=== PATIENT | female | born 1970 | race American Indian/Alaskan Native ===

== ENCOUNTER 2021-03-09 16:59 | Emergency (ER) | payer MEDICAID ==
[2021-03-09 17:13] VITALS: BP 155/95
[2021-03-09] MEDS ORDERED: ALBUTEROL 2.5 MG/3 ML NEBU IH ONE (17:26)
[2021-03-09] MEDS ORDERED: IPRATROPIUM 0.02% NEBU 2.5 ML IH ONE (17:26)
--- NOTE | 2021-03-09 17:59 | XRay Report ---
XR chest 1V ap INDICATION / CLINICAL INFORMATION: DYSPNEA, ASTHMA COMPARISON: None available. FINDINGS: SUPPORT DEVICES: None. HEART / MEDIASTINUM: No significant abnormality. LUNGS / PLEURA: Lungs are clear. Costophrenic sulci are sharp. No pneumothorax. ADDITIONAL FINDINGS: No significant additional findings. IMPRESSION: 1. No acute findings. Signer Name: Luis Alberto Fitzgerald MD Signed: 03/09/2021 5:54 PM Workstation Name: [id number]
[2021-03-09 18:36] LABS: Basophils # (Auto) 0.1 K/mm3 (0.0-0.1); Basophils % (Auto) 1.1 % (0.0-1.8); Eosinophils # (Auto) 0.2 K/mm3 (0.0-0.4); Eosinophils % (Auto) 3.2 % (0.0-4.3); Lymphocytes # (Auto) 1.3 K/mm3 (1.2-5.4); Lymphocytes % (Auto) 19.9 % (13.4-35.0); Mean Corpuscular HGB Conc 28 % (30-34); Monocytes # (Auto) 0.7 K/mm3 (0.0-0.8); Monocytes % (Auto) 11.4 % (0.0-7.3); Platelet Count 261 K/mm3 (140-440); Red Blood Count 4.31 M/mm3 (3.65-5.03); Red Cell Distribution Width 19.9 % (13.2-15.2)
[2021-03-09 18:37] LABS: Hematocrit 26.4 % (30.3-42.9); Hemoglobin 7.5 gm/dl (10.1-14.3); Mean Corpuscular Volume 61 fl (79-97)
[2021-03-09 18:43] LABS: Alanine Aminotransferase 9 units/L (7-56); BUN/Creatinine Ratio 14; Blood Urea Nitrogen 11 mg/dL (7-17); Calcium 8.5 mg/dL (8.4-10.2); Hemolysis Index 2
[2021-03-09] MEDS ORDERED: MAGNESIUM SULFATE 2 GM/50 ML BAG IV ONE ×2 (18:43→20:02)
[2021-03-09] MEDS ORDERED: SODIUM CHLORIDE 0.9% 1000 ML 1,000 ML IV ONE (18:43)
--- NOTE | 2021-03-09 19:48 | Emergency Department Report ---
ED Shortness of Breath HPI - General Chief Complaint: Dyspnea/Respdistress Stated Complaint: ASTHMA Source: patient Mode of arrival: Ambulatory Limitations: No Limitations - History of Present Illness Initial Comments: Patient is a 49-year-old -[place] female with a history of asthma, migraine headaches, iron deficiency anemia and tobacco abuse who presents to the ED with complaint of acute onset persistent shortness of breath, chest tightness, wheezing, persistent dry cough for the last 5 days despite using her albuterol inhaler at home. Patient states that her symptoms got worse the last 24 hours. Patient also states that she ran out of her albuterol nebulizers at home. Patient denies nausea, vomiting, dizziness, syncope, fever, chills, chest pain, nasal and sinus congestion, sore throat, abdominal pain, diarrhea, headache, change in vision, back pain or palpitations. MD Complaint: shortness of breath, cough, "asthma attack" -: Sudden, days(s) (5) Severity: moderate Pain Scale: 5 Quality: sharp Consistency: intermittent Improves With: nothing Worsens With: nothing Known History Of: asthma Context: allergen exposure Associated Symptoms: denies other symptoms, cough Treatments Prior to Arrival: bronchodilator - Related Data Home Oxygen Therapy: No Previous Rx's Medication Instructions Recorded Last Taken Type ALBUTEROL NEB's [Proventil 0.083% 3 ml IH Q6H PRN #75 ml 03/09/21 Unknown Rx NEBS] Albuterol Sulfate [Proventil Hfa] 1 - 2 puff IH Q6H PRN #1 hfa.aer.ad 03/09/21 Unknown Rx Azithromycin [Zithromax Z-FRANCA] 250 mg PO DAILY #6 tablet 03/09/21 Unknown Rx Benzonatate [Tessalon Perles] 100 mg PO Q8HR #30 capsule 03/09/21 Unknown Rx Ibuprofen [Motrin] 600 mg PO Q8H PRN #30 tablet 03/09/21 Unknown Rx Montelukast [Singulair] 10 mg PO QPM #30 tablet 03/09/21 Unknown Rx methylPREDNISolone [Medrol 4MG 4 mg PO DAILY #21 tab.ds.pk 03/09/21 Unknown Rx DOSEPAK (21 tabs)] Allergies Allergy/AdvReac Type Severity Reaction Status Date / Time sulfamethoxazole Allergy Hives Verified 03/09/21 17:11 [From Bactrim] trimethoprim [From Bactrim] Allergy Hives Verified 03/09/21 17:11 ED Review of Systems ROS: Stated complaint: ASTHMA Other details as noted in HPI Constitutional: malaise. denies: chills, fever Eyes: denies: eye pain, eye discharge, vision change ENT: denies: ear pain, throat pain Respiratory: cough, shortness of breath, wheezing Cardiovascular: chest pain (chest tightness). denies: palpitations Endocrine: no symptoms reported Gastrointestinal: denies: abdominal pain, nausea, vomiting, diarrhea Genitourinary: denies: urgency, dysuria, discharge Musculoskeletal: denies: back pain, joint swelling, arthralgia Skin: denies: rash, lesions Neurological: denies: headache, weakness, paresthesias Psychiatric: denies: anxiety, depression Hematological/Lymphatic: denies: easy bleeding, easy bruising ED Past Medical Hx - Past Medical History Previous Medical History?: Yes Hx Headaches / Migraines: Yes Hx Asthma: Yes Additional medical history: anemia - Surgical History Past Surgical History?: Yes Additional Surgical History: , - Medications Home Medications: Home Medications Medication Instructions Recorded Confirmed Last Taken Type ALBUTEROL NEB's [Proventil 0.083% 3 ml IH Q6H PRN #75 ml 03/09/21 Unknown Rx NEBS] Albuterol Sulfate [Proventil Hfa] 1 - 2 puff IH Q6H PRN #1 hfa.aer.ad 03/09/21 Unknown Rx Azithromycin [Zithromax Z-FRANCA] 250 mg PO DAILY #6 tablet 03/09/21 Unknown Rx Benzonatate [Tessalon Perles] 100 mg PO Q8HR #30 capsule 03/09/21 Unknown Rx Ibuprofen [Motrin] 600 mg PO Q8H PRN #30 tablet 03/09/21 Unknown Rx Montelukast [Singulair] 10 mg PO QPM #30 tablet 03/09/21 Unknown Rx methylPREDNISolone [Medrol 4MG 4 mg PO DAILY #21 tab.ds.pk 03/09/21 Unknown Rx DOSEPAK (21 tabs)] ED Physical Exam - General Limitations: No Limitations General appearance: alert, in no apparent distress - Head Head exam: Present: atraumatic, normocephalic, normal inspection - Eye Eye exam: Present: normal appearance, PERRL, EOMI - ENT ENT exam: Present: normal orophraynx, mucous membranes moist, TM's normal bilate rally, normal external ear exam, other (Grossly congested nasal passages) - Neck Neck exam: Present: normal inspection, full ROM - Respiratory Respiratory exam: Present: wheezes (Diffuse coarse wheezes throughout). Absent: respiratory distress, rales, rhonchi, chest wall tenderness, accessory muscle use, decreased breath sounds, prolonged expiratory - Cardiovascular Cardiovascular Exam: Present: normal rhythm, tachycardia, normal heart sounds. Absent: systolic murmur, diastolic murmur, rubs, gallop - GI/Abdominal GI/Abdominal exam: Present: soft, normal bowel sounds. Absent: tenderness, guarding, rebound, hyperactive bowel sounds, hypoactive bowel sounds, organomegaly - Extremities Exam Extremities exam: Present: normal inspection, full ROM, normal capillary refill - Back Exam Back exam: Present: normal inspection, full ROM. Absent: tenderness, CVA t enderness (R), CVA tenderness (L), muscle spasm, paraspinal tenderness, vertebral tenderness - Neurological Exam Neurological exam: Present: alert, oriented X3, CN II-XII intact, normal gait, reflexes normal - Psychiatric Psychiatric exam: Present: normal affect, normal mood - Skin Skin exam: Present: warm, dry, intact, normal color. Absent: rash ED Course Vital Signs 03/09/21 17:10 Temperature 97.8 F Pulse Rate 100 H Respiratory 18 Rate Blood Pressure 155/95 O2 Sat by Pulse 98 Oximetry ED Medical Decision Making - Lab Data Result diagrams: 03/09/21 17:50 03/09/21 17:50 - Radiology Data Radiology results: report reviewed, image reviewed [facility] [address] [place] [address] XRay Report Signed Patient: BRADY QUINTEROS MR#: [id number] : 07/05/1971 Acct:[id number] Age/Sex: 49 / F ADM Date: 03/09/21 Loc: ED Attending Dr: Ordering Physician: GREG ANTHONY Date of Service: 03/09/21 Procedure(s): XR chest 1V ap Accession Number(s): [id number] cc: GREG ANTHONY Fluoro Time In Minutes: XR chest 1V ap INDICATION / CLINICAL INFORMATION: DYSPNEA, ASTHMA COMPARISON: None available. FINDINGS: SUPPORT DEVICES: None. HEART / MEDIASTINUM: No significant abnormality. LUNGS / PLEURA: Lungs are clear. Costophrenic sulci are sharp. No pneumothorax. ADDITIONAL FINDINGS: No significant additional findings. IMPRESSION: 1. No acute findings. Signer Name: Luis Alberto Fitzgerald MD Signed: 03/09/2021 5:54 PM Workstation Name: [id number] Transcribed By: CS Dictated By: Luis Alberto Fitzgerald MD Electronically Authenticated By: Luis Alberto Fitzgerald MD Signed Date/Time: 03/09/211753 DD/ 53 TD/TT: - Medical Decision Making This is a 49-year-old -[place] female with a history of asthma, migraine headaches, iron deficiency anemia and tobacco abuse who presents to the ED with complaint of acute onset persistent shortness of breath, chest tightness, wheezing, persistent dry cough for the last 5 days despite using her albuterol inhaler at home. Patient states that her symptoms got worse the last 24 hours. Patient also states that she ran out of her albuterol nebulizers at home. In the ED, patient is alert and oriented x3 and is not in any distress but afebrile and tachycardic in triage. Chest x-ray shows no acute cardiopulmonary abnormalities or pneumonitis. Lab test results were reviewed and are all nonactionable. Patient received DuoNeb treatment in the ED, also received Solu- Medrol 125 mg IV x1 as well as magnesium 2 g IV x1 with normal saline 1 L IV bolus. On reevaluation, patient felt better, oxygen saturation is 100% and wheezing resolved as well. Patient was therefore discharged home on medications and advised to follow-up with her primary care physician in 5 to 7 days for reevaluation or return to the ED immediately if symptoms get worse. Patient was also counseled on the importance of quitting tobacco abuse to improve on her symptoms. Patient verbalized understanding. - Differential Diagnosis asthma; bronchitis; pneumonia; URI Critical care attestation.: If time is entered above; I have spent that time in minutes in the direct care of this critically ill patient, excluding procedure time. ED Disposition Clinical Impression: Acute bronchitis with asthma with acute exacerbation, Shortness of breath Disposition: TO HOME OR SELFCARE Is pt being admited?: No Does the pt Need Aspirin: No Condition: Stable Instructions: Shortness of Breath, Adult, [id number], Cough, Adult, [id number]-ef-Dqzz, Acute Bronchitis, Adult, [id number]-Rcpr, Asthma, Adult, [id number]-ea-Hfox, Acute Bronchitis (ED) Additional Instructions: All lab test results were reviewed and are all nonactionable. Chest x-ray shows no acute cardiopulmonary abnormalities or pneumonitis. Your symptoms are likely due to acute exacerbation of your asthma or bronchitis. Therefore take medications with food, drink plenty of fluids and follow-up with your primary c are physician in 5 to 7 days for reevaluation. Return to the ED immediately if symptoms get worse. Prescriptions: methylPREDNISolone [Medrol 4MG DOSEPAK (21 tabs)] 4 mg PO DAILY #21 tab.ds.pk Ibuprofen [Motrin] 600 mg PO Q8H PRN #30 tablet PRN Reason: Pain ALBUTEROL NEB's [Proventil 0.083% NEBS] 3 ml IH Q6H PRN #75 ml PRN Reason: Wheezing Albuterol Sulfate [Proventil Hfa] 1 - 2 puff IH Q6H PRN #1 hfa.aer.ad PRN Reason: Shortness Of Breath Montelukast [Singulair] 10 mg PO QPM #30 tablet Benzonatate [Tessalon Perles] 100 mg PO Q8HR #30 capsule Azithromycin [Zithromax Z-FRANCA] 250 mg PO DAILY #6 tablet Referrals: KAREN SCHRADER MD [Staff Physician] - 7-10 days Time of Disposition: 19:48 Print Language: BELARUSIAN
[2021-03-09] MEDS ORDERED: BENZONATATE 100 MG CAP PO ONE (20:02)
[2021-03-09] MEDS ORDERED: methylPREDNISolone Sod Succinate 125 MG/2 ML INJ IV ONE (20:02)
== END 2021-03-09 21:15 | disposition home or self-care (01) ==
LOC: EDBD 16:59 → ED 16:59
DX: J20.9 Acute bronchitis, unspecified (principal); G43.909 Migraine, unspecified, not intractable, without status migrainosus; J45.909 Unspecified asthma, uncomplicated
CPT/HCPCS: 36415; 71045; 80053; 85025; 96365; 96375; 99284; J2930; J3475; J7030

== ENCOUNTER 2021-06-30 11:57 | Emergency (ER) | payer MEDICAID ==
[2021-06-30 12:18] VITALS: BP 189/78
--- NOTE | 2021-06-30 13:16 | Emergency Department Report ---
ED General Adult HPI - General Chief complaint: Urogenital-Female Stated complaint: VAGINAL PROBLEM Time Seen by Provider: 06/30/21 12:28 Source: patient Mode of arrival: Ambulatory Limitations: No Limitations - History of Present Illness Initial comments: Is a pleasant 51-year-old female presents emergency department chief complaint of a painful bump above her vagina has been present for the past few days. She has a history of abscess here in the past and has been trying home remedies with no relief of her symptoms. She denies any associated fever, chills or night sweats, headache, dizziness, or vision, nausea, vomiting, diarrhea, chest pain, shortness of breath, weakness or any other associated symptoms. - Related Data Previous Rx's Medication Instructions Recorded Last Taken Type ALBUTEROL NEB's [Proventil 0.083% 3 ml IH Q6H PRN #75 ml 03/09/21 Unknown Rx NEBS] Albuterol Sulfate [Proventil Hfa] 1 - 2 puff IH Q6H PRN #1 hfa.aer.ad 03/09/21 Unknown Rx Azithromycin [Zithromax Z-FRANCA] 250 mg PO DAILY #6 tablet 03/09/21 Unknown Rx Benzonatate [Tessalon Perles] 100 mg PO Q8HR #30 capsule 03/09/21 Unknown Rx Ibuprofen [Motrin] 600 mg PO Q8H PRN #30 tablet 03/09/21 Unknown Rx Montelukast [Singulair] 10 mg PO QPM #30 tablet 03/09/21 Unknown Rx methylPREDNISolone [Medrol 4MG 4 mg PO DAILY #21 tab.ds.pk 03/09/21 Unknown Rx DOSEPAK (21 tabs)] Acetaminophen/Codeine [Tylenol 1 tab PO Q6H PRN #12 tab 06/30/21 Unknown Rx /Codeine # 3 tab] Clindamycin [Clindamycin CAP] 300 mg PO Q6H #40 capsule 06/30/21 Unknown Rx Triamcinolone 0.5% [Kenalog 0.5% 1 applic TP TID #1 tube 06/30/21 Unknown Rx CREAM] Allergies Allergy/AdvReac Type Severity Reaction Status Date / Time sulfamethoxazole Allergy Hives Verified 03/09/21 17:11 [From Bactrim] trimethoprim [From Bactrim] Allergy Hives Verified 03/09/21 17:11 ED Review of Systems ROS: Stated complaint: VAGINAL PROBLEM Other details as noted in HPI Comment: All other systems reviewed and negative Constitutional: denies: chills, fever Eyes: denies: eye pain, eye discharge, vision change ENT: denies: ear pain, throat pain Respiratory: denies: cough, shortness of breath, wheezing Cardiovascular: denies: chest pain, palpitations Endocrine: no symptoms reported Gastrointestinal: denies: abdominal pain, nausea, diarrhea Genitourinary: denies: urgency, dysuria, discharge Musculoskeletal: denies: back pain, joint swelling, arthralgia Skin: as per HPI. denies: rash, lesions Neurological: denies: headache, weakness, paresthesias Psychiatric: denies: anxiety, depression Hematological/Lymphatic: denies: easy bleeding, easy bruising ED Past Medical Hx - Past Medical History Previous Medical History?: Yes Hx Headaches / Migraines: Yes Hx Asthma: Yes Additional medical history: anemia - Surgical History Additional Surgical History: , - Medications Home Medications: Home Medications Medication Instructions Recorded Confirmed Last Taken Type ALBUTEROL NEB's [Proventil 0.083% 3 ml IH Q6H PRN #75 ml 03/09/21 Unknown Rx NEBS] Albuterol Sulfate [Proventil Hfa] 1 - 2 puff IH Q6H PRN #1 hfa.aer.ad 03/09/21 Unknown Rx Azithromycin [Zithromax Z-FRANCA] 250 mg PO DAILY #6 tablet 03/09/21 Unknown Rx Benzonatate [Tessalon Perles] 100 mg PO Q8HR #30 capsule 03/09/21 Unknown Rx Ibuprofen [Motrin] 600 mg PO Q8H PRN #30 tablet 03/09/21 Unknown Rx Montelukast [Singulair] 10 mg PO QPM #30 tablet 03/09/21 Unknown Rx methylPREDNISolone [Medrol 4MG 4 mg PO DAILY #21 tab.ds.pk 03/09/21 Unknown Rx DOSEPAK (21 tabs)] Acetaminophen/Codeine [Tylenol 1 tab PO Q6H PRN #12 tab 06/30/21 Unknown Rx /Codeine # 3 tab] Clindamycin [Clindamycin CAP] 300 mg PO Q6H #40 capsule 06/30/21 Unknown Rx Triamcinolone 0.5% [Kenalog 0.5% 1 applic TP TID #1 tube 06/30/21 Unknown Rx CREAM] ED Physical Exam - General Limitations: No Limitations General appearance: alert, in no apparent distress - Head Head exam: Present: atraumatic, normocephalic - Eye Eye exam: Present: normal appearance, PERRL, EOMI Pupils: Present: normal accommodation - ENT ENT exam: Present: normal exam, normal orophraynx, mucous membranes moist - Neck Neck exam: Present: normal inspection, full ROM. Absent: tenderness, meningismus - Respiratory Respiratory exam: Present: normal lung sounds bilaterally. Absent: respiratory distress, wheezes, rales, rhonchi, stridor - Cardiovascular Cardiovascular Exam: Present: regular rate, normal rhythm, normal heart sounds. Absent: systolic murmur, diastolic murmur, rubs, gallop - GI/Abdominal GI/Abdominal exam: Present: soft, normal bowel sounds. Absent: distended, tenderness, guarding, rebound, rigid - External exam: Present: swelling, other (There is a 3 cm fluctuant mass just above the vagina. Exam chaperoned by JOSIE Suggs) - Extremities Exam Extremities exam: Present: normal inspection - Back Exam Back exam: Present: normal inspection - Neurological Exam Neurological exam: Present: alert, oriented X3 - Psychiatric Psychiatric exam: Present: normal affect, normal mood - Skin Skin exam: Present: warm, dry, intact, normal color. Absent: rash ED Course Vital Signs 06/30/21 12:17 Temperature 98.3 F Pulse Rate 86 Respiratory 16 Rate Blood Pressure 189/78 [Right] O2 Sat by Pulse 100 Oximetry - I & D Vagina Type of Procedure: Complex Blade Size: 11 I & D Procedure: betadine prep, sterile drapes applied, sterile dressing applied, gauze wick placed Progress: The patient gave verbal consent. I then cleaned the area with Betadine prep and anesthetized the area with 1% lidocaine without epinephrine. 1/2 cm incision was then made over the area of most fluctuance and a large amount of purulent drainage was expressed. There was pain with the loculation the patient did not tolerate any further loculation or irrigation. Suspect there may be another pocket of infection there but the patient would declined to allow me to do any further expression or the loculation due to pain. I offered to renumb but she declined. I did pack the remaining wound with quarter inch iodoform gauze which she tolerated well. The procedure was tolerated with difficulty but overall large amount of pus was drained. There was less than 5 mL of blood loss. ED Medical Decision Making - Medical Decision Making Abscess was drained although I suspect there may be one more pocket of pus in the wound the patient would not allow me to further deloculated. She will be treated with clindamycin, warm compresses, Tylenol with codeine for pain and topical triamcinolone due to history of eczema that she reports this is helped her in the past. She understood that it is possible there may be another pocket of pus and this may get worse again and that she may need to follow-up with either her [employer]ATOR or primary care doctor or surgeon. She understood and I recommend warm compress return to the ER with any change in her symptoms. She verbalized understand the diagnosis, troponin follow structures all questions were answered. - Differential Diagnosis Abscess, cellulitis, folliculitis, eczema Critical care attestation.: If time is entered above; I have spent that time in minutes in the direct care of this critically ill patient, excluding procedure time. ED Disposition Clinical Impression: Abscess Disposition: 01 HOME / SELF CARE / HOMELESS Is pt being admited?: No Condition: Stable Instructions: Skin Abscess Prescriptions: Clindamycin [Clindamycin CAP] 300 mg PO Q6H #40 capsule Triamcinolone 0.5% [Kenalog 0.5% CREAM] 1 applic TP TID #1 tube Acetaminophen/Codeine [Tylenol /Codeine # 3 tab] 1 tab PO Q6H PRN #12 tab PRN Reason: Pain , Severe (7-10) Referrals: STEVEN ARCE MD [Primary Care Provider] - 3-5 Days [facility] [Provider Group] - 3-5 Days KAREN SCHRADER MD [Staff Physician] - 3-5 Days
== END 2021-06-30 14:16 | disposition home or self-care (01) ==
LOC: ED 11:57
DX: L02.91 Cutaneous abscess, unspecified (principal)
CPT/HCPCS: 99282; 99283